=== PATIENT | female | born 1940 | race Caucasian/White ===

== ENCOUNTER 2024-05-02 14:41 | Emergency (ER) | payer MEDICARE, OTHER, SELFPAY ==
[2024-05-02 14:42] VITALS: BP 145/65
--- NOTE | 2024-05-02 15:43 | ED.GENMED ---
History of Present Illness
General
Chief Complaint: DVT/Possible Blood Clot
Source: patient and spouse
Exam Limitations: none
Time Seen by Provider: 05/02/24 15:35
Nursing documentation reviewed up to this point in time: agreed with
History of Present Illness
History of Present Illness:
83-year-old female with a past medical history as documented who presents to the emergency room for evaluation of right leg pain and swelling. Patient reports onset of symptoms yesterday and have been constant since that time. She reports pain and
swelling of the right lower leg and redness to the anterior lower leg that has been worsening x 24 hours. She denies any trauma to the area. She denies any other symptoms including fevers or chills, chest pain or shortness of breath. She was she
was concerned potentially for a DVT although she denies any past history of DVT/PE.
Past History
Past History
ED Past Medical History: Arrthythmia (Paroxysmal a fib/ atrial tachycardia), Asthma, GERD, Hypercholesterolemia, Hypothyroidism and Other (Elevated troponin in February 2010, NSTEMI, Ulcers, aortic stenosis, osteoporosis); Negative CAD
ED Past Surgical History: Orthopedic
Social History
Tobacco: Non-smoker
Alcohol: Daily
Drug: None
Personal:
Living: with family
Employment: Retired
Family History
Family History: Negative Diabetes or Hypertension
Review of Systems
Review of Systems
All Other Systems: ROS reviewed and negative except as documented in HPI and ROS
Constitutional: Denies fever or chills
Respiratory: Denies trouble breathing
Cardiac: Denies chest pain
Musculoskeletal: Reports edema
Skin: Reports other (Redness and pain right lower leg)
Phy Exam
Physical Exam
Physical Exam:
General: Awake, alert, oriented x3; no acute distress
Head: Normocephalic, atraumatic
Eyes: Conjunctiva normal
Throat: Airway intact, handling secretions
Neck: Trachea midline
Lungs: Normal respiratory rate, normal pulse ox on room air
Heart: Regular rate, good strong pulses in all extremities�specifically she has a strong palpable right DP pulse
Neuro: Cranial nerves grossly intact, speech fluid
Skin: Patient has chronic venous stasis changes in both lower legs; on the right lateral lower leg she has an area of increased erythema and warmth and tenderness to the touch, induration but no crepitus or fluctuance
Extremities: Trace edema in the lower legs bilaterally but it appears to be symmetric
Scores
Heart Failure Risk
Heart Failure Risk Score: Not Applicable
Heart Score for Chest Pain Patients
STEMI patient?: Not applicable
Withdrawal Assessment of Alcohol
Withdrawal Assessment Completed?: Not applicable
Course
Orders/Labs/Results
Orders:
Orders
05/02/24 14:46
US Periph Venous LOWER Ext RT Urgent
Comment:
Reason For Exam: pain, swelling
05/02/24 17:05
Cephalexin Monohydrate [Keflex] 500 mg PO NOW STA
Vital Signs
Initial and Last Documented VS:
Initial Vital Signs
Temp Pulse Resp BP Pulse Ox
36.4 C 80 18 145/65 99
05/02/24 14:42 05/02/24 14:42 05/02/24 14:42 05/02/24 14:42 05/02/24 14:42
Last Documented Vital Signs
Temp Pulse Resp BP Pulse Ox
36.4 C 80 18 145/65 99
05/02/24 14:42 05/02/24 14:42 05/02/24 14:42 05/02/24 14:42 05/02/24 14:42
MDM/Problems Addressed
Differential Diagnosis Includes:
Cellulitis, DVT
MDM/Problems Addressed:
83-year-old female who presents with atraumatic pain and swelling on the right lower leg for the past 24 hours. Vitals normal. Exam as above. Clinically I suspect that this is a mild acute cellulitis but will send for right lower extremity
ultrasound to rule out DVT. Reassess after the above.
Right lower extremity ultrasound shows no signs of acute DVT. Suspect that she likely has mild acute cellulitis. She does have some chronic venous stasis changes and dry skin in the lower extremities which likely represents portal for bacterial
injury. Redness and swelling is relatively mild and localized and she has no signs of sepsis; in my judgment she is a reasonable candidate for trial of outpatient antibiotics. She feels comfortable this plan. Will have her follow-up with her PCP
for reassessment and return with worsening symptoms. All questions answered.
*Radiology
Radiology exam reviewed: radiology read reviewed
*Pulse Oximetry
Patient hypoxic: no
*Critical Care Note
Total Time (30-74mins, 75-104mins- exclusive of procedures): Not Applicable
Data Reviewed
Source: patient, records and spouse
ED Attending Note
-
Portions of this chart may have been created with voice recognition software.� Occasional wrong word or��sound alike� substitutions may have occurred due to the inherent limitations of voice recognition software.
Discharge Plan
Departure
Patient Disposition: Home (Routine Discharge)
Date of Disposition: 05/02/24
Time of Disposition: 17:05
Patient with high blood pressure during this ER visit?: No
Discharge Problem:
Cellulitis
Instructions: Cellulitis (Skin Infection), Adult (DC)
Prescriptions:
New
cephalexin 500 mg capsule
500 mg PO QID 7 Days Qty: 28 0RF
No Action
omeprazole 20 MG capsule,delayed release(DR/EC)
20 mg PO DAILY
cholecalciferol (vitamin D3) 2,000 UNIT tablet
2,000 units PO DAILY
metoprolol succinate 50 MG tablet extended release 24 hr
50 mg PO BID Qty: 60 0RF
Xarelto 15 mg Tablet
15 mg PO DAILY
potassium chloride 20 mEq Tablet Extended Release
60 meq PO BID
Balance Of Nature
2 cap PO TID
Rx Instructions:
Fruits & Vegetables
allopurinol 100 mg tablet
100 mg PO DAILY
acetaminophen [Tylenol Ex Str Arthritis Pain] 500 mg Tablet
500 mg PO Q6H PRN (Reason: discomfort)
oxycodone-acetaminophen 5-325 mg Tablet
1 tab PO Q6H PRN (Reason: discomfort)
levothyroxine [Synthroid] 125 mcg Tablet
125 mcg PO DAILY
bumetanide 1 mg Tablet
2.5 mg PO DAILY
vitamin B complex Tablet
1 tab PO DAILY
Jardiance 25 mg Tablet
25 mg PO DAILY
vitamin E
180 mg PO DAILY
Referrals:
UNKNOWN - PT DOES,NOT KNOW [Unknown Provider] -
Activity Restrictions/Additional Instructions:
Thank you for visiting the Emergency Department at [facility].
1. Please schedule a follow up appointment as directed. Call first thing tomorrow morning to make an appointment.
2. If indicated, please take your medications as instructed and indicated on discharge paperwork.
3. If any of your symptoms do not improve, or persist, or become more severe within 6-12 hours, please return to the emergency department for further care.
4. Please return to the emergency department if you develop a headache, neck pain/stiffness, fever greater than 100.4F, chest pain, shortness of breath, persistent nausea, vomiting, slurred speech, difficulty walking, numbness/tingling, weakness,
signs of infection or any other symptoms that are worrisome to you.
Please call [phone] if you have any questions.
Interventions
Interventions:
*Risk Screen - Suicide Last Done: 05/02/24 14:42
*General Assessment Last Done: 05/02/24 14:42
*Neglect/Abuse Screening Last Done: 05/02/24 14:42
*ED COVID-19 Vaccine History Last Done: 05/02/24 14:42
ED- Cardiac Assessment Last Done: 05/02/24 17:01
ED- Pulmonary Assessment Last Done: 05/02/24 17:01
ED-Peripheral Vascular Assessment Last Done: 05/02/24 17:01
Discharge Date and Time
Print Language: AMERICAN
[2024-05-02] MEDS: KEFLEX 500 MG PO (17:10)
== END 2024-05-02 17:22 | disposition home or self-care (01) ==
LOC: EMR 14:41
PROVIDERS: EMERGENCY PHYSICIAN Emergency Medicine; FAMILY PHYSICIAN Family Medicine
DX: L03.115 Cellulitis of right lower limb (principal); M79.661 Pain in right lower leg; I48.0 Paroxysmal atrial fibrillation; K21.9 Gastro-esophageal reflux disease without esophagitis; J45.909 Unspecified asthma, uncomplicated; E78.00 Pure hypercholesterolemia, unspecified; E03.9 Hypothyroidism, unspecified; I35.0 Nonrheumatic aortic (valve) stenosis; I25.10 Atherosclerotic heart disease of native coronary artery without angina pectoris; R01.1 Cardiac murmur, unspecified; K52.9 Noninfective gastroenteritis and colitis, unspecified; M19.90 Unspecified osteoarthritis, unspecified site; E11.9 Type 2 diabetes mellitus without complications; Z96.653 Presence of artificial knee joint, bilateral; I25.2 Old myocardial infarction; Z79.01 Long term (current) use of anticoagulants; Z88.1 Allergy status to other antibiotic agents; Z88.8 Allergy status to other drugs, medicaments and biological substances
CPT/HCPCS: 99284; 93971

== ENCOUNTER 2024-08-04 09:26 | Emergency (ER) | payer MEDICARE, OTHER, SELFPAY ==
[2024-08-04 09:41] VITALS: BP 137/82
[2024-08-04 09:56] VITALS: BMI 37.0
[2024-08-04 10:01] VITALS: BP 123/67
--- NOTE | 2024-08-04 10:34 | ED.GENMED ---
History of Present Illness
<BENJI Wills - Last Filed: 08/06/24 08:49>
General
Chief Complaint: Skin Problem
Source: patient
Exam Limitations: none
Time Seen by Provider: 08/04/24 09:51
Nursing documentation reviewed up to this point in time: agreed with
History of Present Illness
History of Present Illness:
84-year-old female with past medical history of kidney issues valve replacement on Pradaxa aortic stenosis A-fib presents to the ER for evaluation.
Pt started with itching to her back and breasts 4 days ago and then noticed some discomfort and bruising in her left anterior rib area. She also complains of' and internal soreness to her left rib are.' She denies any injury. She denies any
nausea vomiting fever chills.
She started Ozempic 9 weeks ago
Past History
<BENJI Wills - Last Filed: 08/06/24 08:49>
Past History
ED Past Medical History: Arrthythmia (Paroxysmal a fib/ atrial tachycardia), Asthma, GERD, Hypercholesterolemia, Hypothyroidism and Other (Elevated troponin in February 2010, NSTEMI, Ulcers, aortic stenosis, osteoporosis); Negative CAD
ED Past Surgical History: Orthopedic
Social History
Tobacco: Non-smoker
Alcohol: Daily
Drug: None
Personal:
Living: with family
Employment: Retired
Family History
Family History: Negative Diabetes or Hypertension
Review of Systems
<BENJI Wills - Last Filed: 08/06/24 08:49>
Review of Systems
Allergies reviewed?: Yes
All Other Systems: ROS reviewed and negative except as documented in HPI and ROS
Constitutional: Reports no symptoms; Denies fever, fatigue or chills
Respiratory: Reports other (soreness around her left rib area); Denies cough or trouble breathing
Cardiac: Reports no symptoms
ABD/GI: Reports no symptoms; Denies abdominal pain, nausea or vomiting
: Reports no symptoms
Musculoskeletal: Reports no symptoms
Skin: Reports itching
Neurological: Reports no symptoms
Psychiatric: Reports no symptoms
Phy Exam
<BENJI Wills - Last Filed: 08/06/24 08:49>
General Physical Exam
General Presentation: no apparent distress
General age: appears stated age
General Skin: warm and dry
General Habitus: elderly
General Mental: alert
General Hydration: appears well hydrated
Cardiovascular Exam
Cardiovascular Exam: regular rate/rhythm
Pulmonary Exam
Pulmonary Exam: lungs clear and no respiratory distress
Neurological Exam
Neurological Exam: alert and oriented x3
Musculoskeletal Exam
Musculoskeletal Exam: full ROM
Skin Exam
Skin Exam: normal color, warm/dry and other (Scattered ecchymosis to left lower anterior rib area with small red rash to this area; in addition + redness to left back no hives )
Psychiatric Exam
Psychiatric Exam: normal mood/affect
Course
<BENJI Wills - Last Filed: 08/06/24 08:49>
Orders/Labs/Results
Orders:
Orders
08/04/24 10:39
IV Insert/Care/Rem.- Treatment PRN
08/04/24 11:30
Basic Metabolic Panel Urgent
PTT Urgent
Prothrombin Time Urgent
08/04/24 11:31
Complete Blood Count/With Diff Urgent
08/04/24 13:25
Comprehensive Metabolic Panel Urgent
Lipase Urgent
Valacyclovir HCl [Valtrex] 1,000 mg PO NOW STA
Abnormal Lab Results
08/04/24 08/04/24 08/04/24
11:30 11:31 13:25
RBC 3.84 L 10^6/uL
(4.20-5.40)
Hct 36.3 L %
(37.0-47.0)
MCH 31.8 H pg
(27.0-31.0)
MPV 10.6 H fL
(7.4-10.4)
Absolute Monos (auto) 1.2 H 10^3/uL
(0.1-0.6)
Lymphocytes % 14.8 L %
(20.5-51.1)
Monocytes % 14.0 H %
(1.7-9.3)
PT 23.4 H Sec
(11.4-14.6)
APTT 77.0 H Sec
(23.4-35.0)
Carbon Dioxide 31 H mmol/L
(22-30)
BUN 46 H mg/dl 45 H mg/dl
(7-17) (7-17)
Creatinine 2.0 H mg/dL 2.1 H mg/dL
(0.6-1.0) (0.6-1.0)
Glucose 108 H mg/dl
(70-99)
Total Protein 6.1 L g/dl
(6.3-8.2)
08/04/24 11:31
08/04/24 13:25
Vital Signs
Initial and Last Documented VS:
Initial Vital Signs
Temp Pulse Resp BP Pulse Ox
97.8 F 72 16 137/82 98
08/04/24 09:41 08/04/24 09:41 08/04/24 09:41 08/04/24 09:41 08/04/24 09:41
Last Documented Vital Signs
Temp Pulse Resp BP Pulse Ox
97.8 F 74 16 127/71 96
08/04/24 09:41 08/04/24 14:43 08/04/24 14:43 08/04/24 14:43 08/04/24 14:43
Atmospheric Scientist consulted with Physician
Atmospheric Scientist consulted with physician?: Yes
Name of Physician Consulted: [email or web address]
<Robert Vlilasenor MD - Last Filed: 08/04/24 11:47>
Orders/Labs/Results
Orders:
Orders
08/04/24 10:39
IV Insert/Care/Rem.- Treatment PRN
08/04/24 11:30
Basic Metabolic Panel Urgent
PTT Urgent
Prothrombin Time Urgent
08/04/24 11:31
Complete Blood Count/With Diff Urgent
08/04/24 13:25
Comprehensive Metabolic Panel Urgent
Lipase Urgent
Valacyclovir HCl [Valtrex] 1,000 mg PO NOW STA
Abnormal Lab Results
08/04/24 08/04/24 08/04/24
11:30 11:31 13:25
RBC 3.84 L 10^6/uL
(4.20-5.40)
Hct 36.3 L %
(37.0-47.0)
MCH 31.8 H pg
(27.0-31.0)
MPV 10.6 H fL
(7.4-10.4)
Absolute Monos (auto) 1.2 H 10^3/uL
(0.1-0.6)
Lymphocytes % 14.8 L %
(20.5-51.1)
Monocytes % 14.0 H %
(1.7-9.3)
PT 23.4 H Sec
(11.4-14.6)
APTT 77.0 H Sec
(23.4-35.0)
Carbon Dioxide 31 H mmol/L
(22-30)
BUN 46 H mg/dl 45 H mg/dl
(7-17) (7-17)
Creatinine 2.0 H mg/dL 2.1 H mg/dL
(0.6-1.0) (0.6-1.0)
Glucose 108 H mg/dl
(70-99)
Total Protein 6.1 L g/dl
(6.3-8.2)
08/04/24 11:31
08/04/24 13:25
Vital Signs
Initial and Last Documented VS:
Initial Vital Signs
Temp Pulse Resp BP Pulse Ox
97.8 F 72 16 137/82 98
08/04/24 09:41 08/04/24 09:41 08/04/24 09:41 08/04/24 09:41 08/04/24 09:41
Last Documented Vital Signs
Temp Pulse Resp BP Pulse Ox
97.8 F 74 16 127/71 96
08/04/24 09:41 08/04/24 14:43 08/04/24 14:43 08/04/24 14:43 08/04/24 14:43
<BENJI Wills - Last Filed: 08/06/24 08:49>
MDM/Problems Addressed
Differential Diagnosis Includes:
not limited to : Allergic reaction, shingles
MDM/Problems Addressed:
As documented patient is an 84-year-old female who presented with several days of generalized itching and in addition noted some pain in the left anterior rib area. She described this pain as internal pain on exam she is in no acute distress she
denies any recent fevers or injury. Her lungs are clear there is no hives to her back. On exam there is small amount of scattered ecchymosis to left anterior rib area and small amount of redness to the left rib area with small redness same
inconsistency to left back area. Redness consistent with possible shingles it is unclear source of ecchymosis patient has been scratching this area but denies trauma. She is on Pradaxa her PT PTT is mildly elevated. Her hemoglobin and platelets
are normal her white count is normal. She does have chronic renal disease and her creatinine is 2.0 which is baseline .
Patient's labs are clotted will check potassium as she does have high kidney function will check LFTs however plan as discussed ED physician is to discharge with antiviral for shingles. Regarding the itching it is possible that his Ozempic will
have patient speak with her family doctor about this before taking medication again.
Chronic conditions affecting care:
On Pradaxa on Ozempic(Ozempic is new for the past several weeks )
<BENJI Wills - Last Filed: 08/06/24 08:49>
*Pulse Oximetry
Patient hypoxic: no
*Critical Care Note
Total Time (30-74mins, 75-104mins- exclusive of procedures): Not Applicable
ED Attending Note
<BENJI Wills - Last Filed: 08/06/24 08:49>
-
Portions of this chart may have been created with voice recognition software.� Occasional wrong word or��sound alike� substitutions may have occurred due to the inherent limitations of voice recognition software.
<Robert Villasenor MD - Last Filed: 08/04/24 11:47>
ED Attending Note
Patient seen and examined by attending physician: Yes
I performed the substantive portion of visit, reviewed & personally made and approve the management plan that is documented in note by myself or AGA.: Yes
ED Attending Note:
84-year-old female complaining of itchy rash bilaterally but mostly the left side. She mostly is scratching the left side. She started Ozempic 2 months ago. No shortness of breath fever chest pain or other complaints.
On exam patient is nontoxic in no distress. Warm and dry. Perfusing well. Ambulating well. Areas of small discrete superficial ecchymosis from the left sternum to the flank. There is a few areas of small early vesicle like rash. Also a tiny
area along the dermatome in the back.
Possibly shingles where the ecchymosis is from her scratching. If course does not explain the general mild itchy rash. Very nontoxic. No petechia or purpura. Will do a labs checked PT PTT. Check platelets. Will treat for shingles if all is
stable
Discharge Plan
Departure
Patient Disposition: Home (Routine Discharge)
Date of Disposition: 08/04/24
Time of Disposition: 15:11
Patient with high blood pressure during this ER visit?: No
Condition: Fair
Covid-19: Not Applicable
Discharge Problem:
Herpes zoster, itching
Instructions: Shingles, Itchy skin
Prescriptions:
New
valacyclovir 1 gram tablet
1,000 mg PO TID Qty: 21 0RF
No Action
omeprazole 20 MG capsule,delayed release(DR/EC)
20 mg PO DAILY
cholecalciferol (vitamin D3) 2,000 UNIT tablet
2,000 units PO DAILY
metoprolol succinate 50 MG tablet extended release 24 hr
50 mg PO BID Qty: 60 0RF
Xarelto 15 mg Tablet
15 mg PO DAILY
potassium chloride 20 mEq Tablet Extended Release
60 meq PO BID
Balance Of Nature
2 cap PO TID
Rx Instructions:
Fruits & Vegetables
allopurinol 100 mg tablet
100 mg PO DAILY
acetaminophen [Tylenol Ex Str Arthritis Pain] 500 mg Tablet
500 mg PO Q6H PRN (Reason: discomfort)
oxycodone-acetaminophen 5-325 mg Tablet
1 tab PO Q6H PRN (Reason: discomfort)
levothyroxine [Synthroid] 125 mcg Tablet
125 mcg PO DAILY
bumetanide 1 mg Tablet
2.5 mg PO DAILY
vitamin B complex Tablet
1 tab PO DAILY
Jardiance 25 mg Tablet
25 mg PO DAILY
vitamin E
180 mg PO DAILY
cephalexin 500 mg capsule
500 mg PO QID 7 Days Qty: 28 0RF
Referrals:
Felix Wilcox MD [Family Provider] -
Activity Restrictions/Additional Instructions:
As discussed a prescription for a viral medication was sent to your pharmacy for shingles take as directed starting tomorrow you were given the first dose here in the ER. In addition please speak with your family doctor prior to taking your next
Ozempic dose because of your itching. Return if any worsening of symptoms if worsening rash difficulty breathing fever chills or if you have any concerns.
Interventions
Interventions:
*Risk Screen - Suicide Last Done: 08/04/24 09:41
*General Assessment Last Done: 08/04/24 09:58
*Neglect/Abuse Screening Last Done: 08/04/24 09:41
ED- Fall Risk Assessment Last Done: 08/04/24 09:58
*ED COVID-19 Vaccine History Last Done: 08/04/24 09:58
*Nursing Disposition Last Done: 08/04/24 15:35
ED-Skin Assessment Last Done: 08/04/24 09:59
Discharge Date and Time
Discharge Date/Time: 08/04/24 15:35
Print Language: COOK ISLANDER
--- NOTE | 2024-08-04 10:44 | EDRN ---
Aure Mac DOCTOR OF NAPRAPATHY in to see pt at 10:35.
[2024-08-04 10:50] VITALS: BP 113/59
--- NOTE | 2024-08-04 11:33 | EDRN ---
This RN attempted IV access x2 w/out success w/ Valeria DELATORREN getting an IV and bloods ordered from L hand IV access at this time.
[2024-08-04 11:39] LABS: % Basophils 0.6 % (0-2); % Eosinophils 4.2 % (0-6); % Immature Granulocytes 0.4 % (0-0.5); % Lymphocytes 14.8 % (20.5-51.1); Absolute Basophils 0.1 10^3/uL (0-0.2); Absolute Eosinophils 0.4 10^3/uL (0-0.7); Absolute Lymphocytes 1.2 10^3/uL (1.2-3.4); Absolute Monocytes 1.2 10^3/uL (0.1-0.6); Absolute Neutrophils 5.5 10^3/uL (1.4-6.5); Hematocrit 36.3 % (37.0-47.0); Hemoglobin 12.2 g/dL (12.0-16.0); Mean Corp Hgb Conc. 33.6 g/dL (33.0-37.0); Mean Corpuscular Hgb 31.8 pg (27.0-31.0); Mean Corpuscular Volume 94.5 fL (81.0-99.0); Mean Platelet Volume 10.6 fL (7.4-10.4); Nucleated Red Blood Cells % 0 %; Platelet Count 183 10^3/uL (130-400); Red Blood Cell Count 3.84 10^6/uL (4.20-5.40); Red Cell Dist. Width 13.3 % (11.5-14.5); White Blood Cell Count 8.3 10^3/uL (4.8-10.8)
[2024-08-04 11:58] LABS: PT 23.4 Sec (11.4-14.6)
--- NOTE | 2024-08-04 12:03 | EDRN ---
Pt up to BR at this time. SST blood tube hemolyzed and will need to be redrawn at this time.
[2024-08-04 12:14] VITALS: BP 113/56
--- NOTE | 2024-08-04 12:16 | EDRN ---
SST blood tube redrawn and sent at this time.
[2024-08-04 12:24] LABS: Blood Urea Nitrogen 46 mg/dl (7-17); Glucose 108 mg/dl (70-99)
[2024-08-04 12:25] LABS: Carbon Dioxide 27 mmol/L (22-30); Chloride 99 mmol/L (98-107); Estimated Creatinine Clearance 21 ml/min; Sodium 137 mmol/L (135-145); eGFR 24.33
--- NOTE | 2024-08-04 13:12 | EDRN ---
Aure Mac BOX TOE STITCHER in room w/ pt. SST tube was again hemolyzed though BMP resulted w/out K+ or liver profile and Aure Mac BOX TOE STITCHER states these labs are needed so pt will need a third draw for SST tube. ED PCT Cristobal attempting SST CMP blood draw.
--- NOTE | 2024-08-04 13:49 | EDRN ---
Pt has valcyclovir ordered by has to await COMPrehensive results as kidney levels high.
[2024-08-04] MEDS: VALTREX 1000 MG PO (14:31)
--- NOTE | 2024-08-04 14:39 | EDRN ---
uAre Mac VIROLOGY TEACHER said no need to hold the Valcyclovir at this time.
[2024-08-04 14:43] VITALS: BP 127/71
[2024-08-04 14:50] LABS: ALT (SGPT) 16 U/L (0-35); AST (SGOT) 30 U/L (14-36); Albumin 3.9 g/dl (3.5-5.0); Alkaline Phosphatase 120 U/L (38-126); Blood Urea Nitrogen 45 mg/dl (7-17); Calcium 9.7 mg/dl (8.4-10.2); Carbon Dioxide 31 mmol/L (22-30); Chloride 100 mmol/L (98-107); Estimated Creatinine Clearance 20 ml/min; Glucose 99 mg/dl (70-99); Lipase 262 U/L (23-300); Potassium 3.9 mmol/L (3.5-5.1); Sodium 140 mmol/L (135-145); Total Bilirubin 0.6 mg/dl (0.2-1.3); Total Protein 6.1 g/dl (6.3-8.2); eGFR 22.95
--- NOTE | 2024-08-04 15:01 | EDRN ---
This RN TT'd Aure Mac TECHNICAL INSTRUCTOR COURSE DEVELOPER that blood drawn at 13:25 was just resulted.
== END 2024-08-04 15:35 | disposition home or self-care (01) ==
LOC: EMR 09:26
PROVIDERS: Nurse Practitioner; EMERGENCY PHYSICIAN Emergency Medicine; FAMILY PHYSICIAN Family Medicine
DX: B02.9 Zoster without complications (principal); L29.9 Pruritus, unspecified; I35.0 Nonrheumatic aortic (valve) stenosis; I48.0 Paroxysmal atrial fibrillation
CPT/HCPCS: 99283; 80048; 80053; 83690; 85025; 85610; 85730

== ENCOUNTER 2025-04-13 08:36 | Inpatient (IN) | payer MEDICARE, OTHER, SELFPAY ==
[2025-04-11 20:26] VITALS: BP 159/84
[2025-04-11 20:27] VITALS: BP 159/84; BMI 36.0
[2025-04-11 20:54] LABS: COVID-19 Antigen Positive (Negative)
[2025-04-11 20:57] LABS: Hematocrit 36.1 % (37.0-47.0); Hemoglobin 12.4 g/dL (12.0-16.0); Mean Corp Hgb Conc. 34.3 g/dL (33.0-37.0); Mean Corpuscular Hgb 33.2 pg (27.0-31.0); Mean Corpuscular Volume 96.5 fL (81.0-99.0); Platelet Count 119 10^3/uL (130-400); Red Blood Cell Count 3.74 10^6/uL (4.20-5.40); Red Cell Dist. Width 13.2 % (11.5-14.5); Urine Albumin 2+ (Neg - Trace); Urine Bilirubin Negative (Negative); Urine Character Clear (Clear); Urine Color Yellow; Urine Glucose Negative (Negative); Urine Ketone 2+ (Negative); Urine Leukocyte 2+ (Negative); Urine Nitrite Negative (Negative); Urine Occult Blood Negative (Negative); Urine Urobilinogen Negative (Neg - 1+); White Blood Cell Count 5.3 10^3/uL (4.8-10.8)
[2025-04-11 21:00] VITALS: BP 142/81
[2025-04-11 21:04] LABS: Urine Squamous Cell >30 /LPF (Few)
[2025-04-11 21:05] LABS: Urine Red Blood Cell 0-2 /HPF (0-2)
[2025-04-11 21:06] LABS: Urine Bacteria Few (Negative); Urine White Cell 30-40 /HPF (0-5)
[2025-04-11 21:20] LABS: Band Neutrophils 0 % (0-3); Lymphocytes 13 % (20-51); Monocytes 29 % (2-9); Segmented Neutrophils 58 % (42-75)
[2025-04-11 21:21] LABS: Normal RBC Morphology Yes; Platelets Checked Yes; Total Cells Counted 100
--- NOTE | 2025-04-11 21:35 | ED.GENMED ---
History of Present Illness
General
Chief Complaint: Cough
Source: patient, spouse and family
Exam Limitations: none
Time Seen by Provider: 04/11/25 20:52
Nursing documentation reviewed up to this point in time: agreed with
History of Present Illness
History of Present Illness:
84-year-old female with a past medical history as noted presents to the emergency department with her family for evaluation of flulike illness. Patient reports symptoms started today and have been constant all day. She reports she woke up with
severe generalized weakness. She says she has had congestion/postnasal drip. She reports she has had subjective chills. She has had headache. She describes some mild pressure in her chest. Came to the emergency room for evaluation. She denies
any shortness of breath. She denies any GI symptoms�no nausea, vomiting, diarrhea. Her only other pertinent complaint is that she has been having some increased bladder pressure and frequency of urination over the past few days�she was already
seen by her primary doctor and prescribed Macrobid and took her first dose today. No flank pain.
Past History
Past History
ED Past Medical History: Arrthythmia (Paroxysmal a fib/ atrial tachycardia), Asthma, GERD, Hypercholesterolemia, Hypothyroidism and Other (Elevated troponin in February 2010, NSTEMI, Ulcers, aortic stenosis, osteoporosis); Negative CAD
ED Past Surgical History: Orthopedic
Social History
Tobacco: Non-smoker
Alcohol: Daily
Drug: None
Personal:
Living: with family
Employment: Retired
Family History
Family History: Negative Diabetes or Hypertension
Review of Systems
Review of Systems
All Other Systems: ROS reviewed and negative except as documented in HPI and ROS
Constitutional: Reports fever (Subjective), fatigue and chills
EENT: Reports runny nose and other (Congestion and postnasal drip); Denies sore throat
Respiratory: Reports cough; Denies trouble breathing
Cardiac: Reports chest pain (Chest pressure); Denies palpitations
ABD/GI: Reports abdominal pain (Bladder pressure); Denies nausea, vomiting or diarrhea
: Reports frequency; Denies dysuria or flank pain
Musculoskeletal: Denies neck pain or back pain
Neurological: Reports headache and weakness (Generally weak)
Phy Exam
Physical Exam
Physical Exam:
General: Awake, alert, oriented x 3, not in acute distress
Head: Normocephalic, atraumatic
Eyes: Conjunctiva normal, EOMI, pupils equal round and reactive to light bilaterally
Ears: TMs clear bilaterally
Throat: Airway intact, handling secretions, no tonsillar erythema or exudate
Neck: Trachea midline, supple without meningismus, no adenopathy noted
Lungs: Clear to auscultation bilaterally, no wheezing, rales, rhonchi, no hypoxia or tachypnea
Heart: Regular rate and rhythm, no murmurs, gallops, or rubs
Abd: Soft, non distended, nontender to deep palpation with no masses appreciated
Neuro: Cranial nerves grossly intact, speech fluid, no gross motor or sensory deficits noted
Extremities: No edema in extremities, equal pulses in all extremities
Scores
Heart Failure Risk
Heart Failure Risk Score: Not Applicable
Heart Score for Chest Pain Patients
STEMI patient?: Not applicable
Withdrawal Assessment of Alcohol
Withdrawal Assessment Completed?: Not applicable
Sepsis
Sepsis Screening
Sepsis Assessment: Sepsis Ruled Out
Sepsis Screen
Sepsis Screen: Sepsis Ruled Out
Date: 04/12/25
Time: 02:07
Course
Orders/Labs/Results
Orders:
Orders
04/11/25 20:38
EKG [Electrocardiogram (*1)] Urgent
Reason for Study: Chest Pain
COVID-19 Antigen Urgent
Source: Nasal Swab
Complete Blood Count/With Diff Urgent
Manual Differential Urgent
Urinalysis Reflex To Culture Urgent
Date Specimen was Collected: 04/11/25
Time Specimen was Collected: 20:31
Urine Microscopic Reflex Cult Urgent
Influenza A+B Rapid Molecular Urgent
NIK Source: Nasal Swab
Specimen Description:
Date Specimen was Collected: 04/11/25
Time Specimen was Collected: 20:31
Urine Culture Urgent
NIK Source: U
Specimen Description:
Date Specimen was Collected: 04/11/25
Time Specimen was Collected: 20:31
04/11/25 20:39
EKG- Treatment ONCE
04/11/25 20:56
CR Chest Portable - 1 View Urgent
Comment:
Reason For Exam: cough, fever
Reason Study Needs to be Portable: Unable to Transport
04/11/25 21:18
Comprehensive Metabolic Panel Urgent
Troponin I Urgent
04/11/25 21:34
0.9% Sodium Chloride 500 ml [Nss] 500 ml IV BOLUS
Acetaminophen [Tylenol] 1,000 mg PO NOW STA
04/11/25 23:30
Troponin I Urgent
04/12/25 00:37
Aspirin Chewable [Low Strength Aspirin] 324 mg PO NOW STA
04/12/25 01:48
Admit/Transfer Patient As Directed
Co-Sign Provider:
Level of Care: Observation services
Assign to:: Telemetry
Physician / Group: Corbin
Diagnosis: COVID-19, Chest Pain
Reason for Telemetry: Chest Pain syndromes
Date to Stop Telemetry: 04/14/25
Time to Stop Telemetry: 11:00
PRN Pain Medication Management As Directed
May give lesser potent ordered pain med per pt: Yes
preference::
Protocol:: Medication orders for pain may be administered in a
manner that supports deferring to patient preference
when the pt is:
- Requesting an ordered lesser potent pain medication.
Least to most potent pain medications are defined
as: acetaminophen < NSAID < tramadol < opioids
(morphine, oxycodone, hydromorphone).
- Requesting a lesser dose of the same medication IF
ORDERED.
- Requesting a less intrusive route of administration
if both routes are prescribed by the provider (PO <
IV).
04/12/25 01:49
Code Status As Directed
Resuscitation Status: Full Code
04/12/25 02:00
Flush (0.9% Sodium Chloride) [Flush (Nss)] See Dose Instructions IV PER PROTOCOL
04/14/25 11:00
DC Protocol for Telemetry ONCE
Abnormal Lab Results
04/11/25 04/11/25 04/11/25
20:38 21:18 23:30
RBC 3.74 L 10^6/uL
(4.20-5.40)
Hct 36.1 L %
(37.0-47.0)
MCH 33.2 H pg
(27.0-31.0)
Plt Count 119 L 10^3/uL
(130-400)
MPV 11.0 H fL
(7.4-10.4)
Lymphocytes (Manual) 13 L %
(20-51)
Monocytes (Manual) 29 H %
(2-9)
BUN 30 H mg/dl
(7-17)
Creatinine 2.1 H mg/dL
(0.6-1.0)
Troponin I 0.039 H* D ng/ml
Urine Ketones 2+ A
(Negative)
Leukocyte Esterase Rfl 2+ A
(Negative)
Urine WBC (Reflex) 30-40 A /HPF
(0-5)
Urine Bacteria (Reflex) Few A
(Negative)
Urine Albumin (Reflex) 2+ A
(Neg - Trace)
SARS-CoV-2 Antigen Positive A
(Negative)
04/11/25 20:38
04/11/25 21:18
Vital Signs
Initial and Last Documented VS:
Initial Vital Signs
Pulse Ox
96
04/11/25 20:24
Last Documented Vital Signs
Temp Pulse Resp BP Pulse Ox
37.3 C 83 23 129/68 97
04/11/25 20:27 04/12/25 01:45 04/12/25 01:45 04/12/25 01:00 04/12/25 01:45
MDM/Problems Addressed
Differential Diagnosis Includes:
Viral illness (COVID/flu), pneumonia, UTI
MDM/Problems Addressed:
84-year-old female presents for evaluation of flulike illness�symptoms started today in the setting of recent UTI symptoms over the past few days for which she just started Macrobid. Vitals and exam as above. Plan to place an IV check labs
including a CBC and CMP. Will check urinalysis. Check COVID and flu swabs. Will check EKG and troponins in an abundance of caution given report of chest pressure although low suspicion that these are anginal symptoms. Will monitor closely
reassess after the above.
Patient's COVID swab is positive which certainly accounts for her symptoms. Apparently she had an exposure a few days ago. We spoke about potentially treating with Paxlovid but after discussion of risk versus benefits patient declined. Her
urinalysis did come back likely contaminated but with bacteria and pyuria that she is already on Macrobid which I encouraged her to continue to take. Her CBC shows mild thrombocytopenia likely in the setting of viral illness. Chemistry still
pending. Treating symptomatically with Tylenol and fluids. We are awaiting results of chest x-ray. Vital signs have been stable.
Chemistry shows chronic kidney disease stable. Initial troponin is negative but detectable at 0.28. Continues to complain of chest pressure will trend for completeness. Chest x-ray shows no acute pneumonia on my review.
Repeat troponin uptrending to 0.039. Possibly some mild pericarditis/myocarditis related to COVID infection, lower suspicion that this is anginal chest pressure but will admit for trending of troponin. Discussed with hospitalist.
*Pulse Oximetry
SaO2: 96
Oxygen Mode of Delivery: Room air
Patient hypoxic: no (96%)
*EKG
Interpreted by ED Provider?: Yes
Heart Rate: 100
Rate: normal
Rhythm: a-fib and PVC's
[place]: normal axis
Interval: normal interval
QRS Pattern: normal QRS
Ischemia: no ischemia
*Critical Care Note
Total Time (30-74mins, 75-104mins- exclusive of procedures): Not Applicable
Data Reviewed
Review of Other/Old Records Reveals: Labs and Records
Source: patient, records and family
ED Attending Note
-
Portions of this chart may have been created with voice recognition software.� Occasional wrong word or��sound alike� substitutions may have occurred due to the inherent limitations of voice recognition software.
Discharge Plan
Departure
Patient Disposition: Admit
Date of Disposition: 04/12/25
Time of Disposition: 00:37
Admit to doctor: Corbin
Presentation/result/management discussed w/ accepting MD/DO: Hospitalist
Discharge Problem:
Chest pain, COVID-19
Prescriptions:
No Action
omeprazole 20 MG capsule,delayed release(DR/EC)
20 mg PO DAILY
cholecalciferol (vitamin D3) 2,000 UNIT tablet
2,000 units PO DAILY
metoprolol succinate 50 MG tablet extended release 24 hr
50 mg PO BID Qty: 60 0RF
Balance Of Nature
2 cap PO TID
Rx Instructions:
Fruits & Vegetables
allopurinol 100 mg tablet
100 mg PO DAILY
acetaminophen [Tylenol Ex Str Arthritis Pain] 500 mg Tablet
500 mg PO Q6H PRN (Reason: discomfort)
levothyroxine [Synthroid] 125 mcg Tablet
125 mcg PO DAILY
bumetanide 1 mg Tablet
1 mg PO BID
vitamin B complex Tablet
1 tab PO DAILY
vitamin E
180 mg PO DAILY
spironolactone 25 mg Tablet
25 mg PO Q48H
dabigatran etexilate [Pradaxa] 150 mg Capsule
150 mg PO BID
magnesium oxide 400 mg magnesium Tablet
400 mg PO BID
Ozempic 1 mg/dose (4 mg/3 mL) Pen Injector
1 mg SC QWEEK
Referrals:
Felix Wilcox MD [Family Provider, Family Practice]
Interventions
Interventions:
*Risk Screen - Suicide Last Done: 04/11/25 20:27
*General Assessment Last Done: 04/11/25 20:27
*Neglect/Abuse Screening Last Done: 04/11/25 20:27
*ED- Fall Risk Assessment Last Done: 04/11/25 20:27
*ED COVID-19 Vaccine History Last Done: 04/11/25 20:27
ED- Pulmonary Assessment Last Done: 04/11/25 20:45
Discharge Date and Time
Print Language: BENGALI
[2025-04-11] MEDS: TYLENOL 1000 MG PO (21:38)
[2025-04-11] MEDS: NSS 500 IV (21:39)
[2025-04-11 21:51] LABS: ALT (SGPT) 19 U/L (0-35); AST (SGOT) 30 U/L (14-36); Albumin 3.8 g/dl (3.5-5.0); Alkaline Phosphatase 121 U/L (38-126); Blood Urea Nitrogen 30 mg/dl (7-17); Calcium 8.9 mg/dl (8.4-10.2); Carbon Dioxide 30 mmol/L (22-30); Chloride 101 mmol/L (98-107); Estimated Creatinine Clearance 19 ml/min; Glucose 96 mg/dl (70-99); Potassium 4.2 mmol/L (3.5-5.1); Sodium 139 mmol/L (135-145); Total Bilirubin 0.6 mg/dl (0.2-1.3); Total Protein 6.6 g/dl (6.3-8.2); eGFR 22.95
[2025-04-11 21:56] LABS: Troponin I 0.028 ng/ml
[2025-04-11 22:00] VITALS: BP 133/64
[2025-04-11 23:00] VITALS: BP 130/66
[2025-04-12] VITALS (10 sets, daily range): BP systolic 97–144; BP diastolic 51–85; PULSE 89–94; BMI 35.4
[2025-04-12 00:05] LABS: Troponin I 0.039 ng/ml
[2025-04-12] MEDS: LOW STRENGTH ASPIRIN 324 MG PO (01:11)
--- NOTE | 2025-04-12 01:51 | HPS.HSE ---
Family Physician
-
Family Physician: Felix Wilcox MD
Chief Complaint
-
Headache, Chest Pain
History of Present Illness
Patient is an 84y F with PMH significant for hypertension, A-Fib and ASCVD who presents to ED complaining of headache, chills, fatigue and chest discomfort. Patient states she woke this AM with her current symptoms. Notes mild cough productive
of thick mucus. Chest tightness / heaviness. Headache, body aches, chills. Patient has been informed since her arrival here that an acquaintance with whom she recently visited was positive for COVID.
Patient feels generally poor. She has no chest pain at the time of my visit.
Patient complained yesterday of lower abdominal pressure and urinary frequency / urgency. She was prescribed Macrobid by her PCP which she started earlier today.
She states that these symptoms improved last PM (even prior to taking Macrobid).
Medical History
Past Medical History
Past Medical History: Reports Other
Additional Past Medical History:
Permanent Atrial Fibrillation
ASCVD
Hypertension
Chronic HFpEF
CKD III
Aortic Stenosis
Hypothyroidism
Nephrolithiasis
GERD
Osteopenia
Past Surgical History: Reports Other
Additional Past Surgical History:
TAVR
PTCA with Stent
Bilateral TKA
R TKA Revision
Umbilical Hernia Repair
Cysto / Stent
Social History
Tobacco: Non-smoker
Alcohol: None
Drug: None
Family History
Family History: Not pertinent
Allergies / Home Medications
Allergies reflects when Allergies were last updated in [facility].
Home Medications with original date entered in [facility]
Allergy/Medication List:
Allergies
Allergy/AdvReac Type Severity Reaction Status Date / Time
amoxicillin trihydrate (From Allergy c-diff Verified 04/11/25 21:35
Augmentin)
atorvastatin calcium (From Allergy pain legs, Verified 04/11/25 21:35
Lipitor) muscle
aches
levothyroxine Allergy Unknown Verified 04/11/25 21:35
Tqsgwbh-PDI-MqD Reductase Allergy pain legs, Verified 04/11/25 21:35
Inhibitor (Kklrfbo-Upa-Ssl muscle
Reductase Inhibitor) aches
Home Medications
omeprazole 20 mg capsule,delayed release 20 mg PO DAILY Gastrointestinal issue 11/16/09
cholecalciferol (vitamin D3) 50 mcg (2,000 unit) tablet 2,000 units PO DAILY Supplement 10/12/14
metoprolol succinate 50 mg tablet,extended release 24 hr 50 mg PO BID ##60 12/13/18
Balance Of Nature 2 cap PO TID Supplement 12/13/22
acetaminophen 500 mg tablet 500 mg PO Q6H PRN discomfort 06/25/23
allopurinol 100 mg tablet 100 mg PO DAILY Gout 06/25/23
bumetanide 1 mg tablet 1 mg PO BID 06/25/23
levothyroxine 125 mcg tablet (Synthroid) 125 mcg PO DAILY 06/25/23
vitamin B complex 1 tab PO DAILY 06/25/23
vitamin E 180 mg PO DAILY 06/25/23
dabigatran etexilate 150 mg capsule (Pradaxa) 150 mg PO BID 04/12/25
magnesium oxide 400 mg PO BID 04/12/25
semaglutide 1 mg/dose (4 mg/3 mL) subcutaneous pen injector (Ozempic) 1 mg SC QWEEK 04/12/25
spironolactone 25 mg tablet 25 mg PO Q48H 04/12/25
Review of Systems
-
History Source: Patient
A 12 point ROS was completed and negative except as noted: Yes
Constitutional: Reports Fatigue and Chills; Denies Fever
EENT: Denies Sore Throat
Respiratory: Reports Cough; Denies Trouble Breathing
Cardiac: Reports Chest Pain; Denies Diaphoresis, Palpitations or Syncope
Abdomen/GI: Denies Abdominal Pain, Nausea, Vomiting or Diarrhea
: Denies Dysuria, Frequency or Flank Pain
Musculoskeletal: Reports Joint Pain and Muscle Pain; Denies Edema
Neurological: Reports Headache; Denies Dizzy or Weakness
Psych: Denies Depression or Anxiety
Physical Exam
Vital Signs
Vital Signs
Temp Pulse Resp BP Pulse Ox
99.2 F 82 24 116/69 94
04/11/25 20:27 04/12/25 00:15 04/12/25 00:15 04/12/25 00:00 04/12/25 00:15
Physical Exam
General: Other (84y F in no acute distress.)
HEENT: Moist mucous membranes and PERRLA
Respiratory: Clear; No Wheezes, Rales or Rhonchi
Cardiac: S1/S2, Irregular Rhythm and Murmur (II/ KANDI)
GI: Soft, Non Tender, Non Distended and Normal Bowel Sounds
Musculoskeletal: No Clubbing, No Cyanosis and No Edema
Neuro: AO x 3
Laboratory Results
-
04/11/25 20:38
04/11/25 21:18
Laboratory Results
Total Bilirubin 0.6 mg/dl (0.2-1.3) 04/11/25 21:18
AST 30 U/L (14-36) 04/11/25 21:18
ALT 19 U/L (0-35) 04/11/25 21:18
Alkaline Phosphatase 121 U/L (38-126) 04/11/25 21:18
Troponin I 0.039 ng/ml H* D 04/11/25 23:30
Impression/Plan
-
A/P: Patient is an 84y F with PMH significant for ASCVD, A-Fib and CKD who presents to ED complaining of headache, chest pain and fatigue.
COVID-19 Infection
- Observe overnight for further evaluation and treatment.
- Afebrile, not significantly hypoxemic.
- Vaccinated x several doses - though missed her booster this past Fall.
- Monitor off of any COVID-specific therapies for now.
- Consider Remdesivir / dexamethasone if increased O2 requirements.
- Consider Paxlovid after acute coronary issue ruled out (see below).
- Follow proper precautions.
- Supportive care, Tylenol, etc.
Chest Pain
ASCVD
- Suspect this is myalgia secondary to COVID as noted above.
- EKG without evident acute ischemia.
- Troponin from 0.028 to 0.039 here in the ED.
- Pain free at present.
- Continue ASA daily. Monitor on telemetry.
- Follow for any recurrent chest pain.
- Follow troponin to peak.
- Consider Cardiology evaluation if recurrent chest pain or significant / continued rise in troponin.
- Continue usual CV med regimen.
UTI
- Urinary symptoms yesterday and started on Macrobid as an outpatient.
- Those symptoms have improved.
- UA today potentially c/w infection - though note that sample is contaminated.
- IV ceftriaxone for now to complete therapy (Macrobid contraindicated given her renal impairment).
- Follow for new symptoms / positive culture data / etc.
Chronic HFpEF
Aortic Stenosis s/p TAVR
- Stable. Patient does not appear grossly volume overloaded.
- Continue current diuretic regimen and follow I/Os, daily weights, etc.
- Last Echo here was 2022 with LVEF = 56% and severe . Has since had TAVR.
Permanent Atrial Fibrillation
- Stable. Continue current CV medications including Pradaxa for stroke risk reduction.
CKD III
- Stable. SCr at / near known baseline.
- Follow for any changes.
Hypothyroidism
- Continue current T4 replacement.
DVT Prophylaxis: On Pradaxa
Code Status: Full
--- NOTE | 2025-04-12 03:30 | PTCARENOTE ---
Received patient from ED. Patient AAOx3, assessed, VSS. Oriented to the unit. Patient verbalized to ring for all transfers. Call tenorio in reach.
[2025-04-12] MEDS: ROCEPHIN 1000 MG IV (04:06)
[2025-04-12] MEDS: TYLENOL 650 MG PO ×3 (04:06→21:05)
[2025-04-12] MEDS: STERILE WATER FOR INJECTION 10 ML IV (04:06)
[2025-04-12] MEDS: FLUSH (NSS) 2 FLUSH IV (04:07)
[2025-04-12 05:38] LABS: Hematocrit 35.4 % (37.0-47.0); Mean Corp Hgb Conc. 33.9 g/dL (33.0-37.0); Mean Corpuscular Hgb 32.9 pg (27.0-31.0); Platelet Count 119 10^3/uL (130-400); Red Blood Cell Count 3.65 10^6/uL (4.20-5.40); Red Cell Dist. Width 13.2 % (11.5-14.5); White Blood Cell Count 3.9 10^3/uL (4.8-10.8)
[2025-04-12 06:10] LABS: Blood Urea Nitrogen 31 mg/dl (7-17); Carbon Dioxide 28 mmol/L (22-30); Chloride 105 mmol/L (98-107); Estimated Creatinine Clearance 21 ml/min; Glucose 78 mg/dl (70-99); HDL Cholesterol 42 mg/dl; LDL Cholesterol, Calculated 84 mg/dl; Magnesium 2.3 mg/dl (1.6-2.3); Potassium 3.7 mmol/L (3.5-5.1); Sodium 140 mmol/L (135-145); Total Cholesterol 144 mg/dl (50-199); Triglyceride 92 mg/dl (10-149); Very Low Density Lipoprotein 18 mg/dl (0-30); eGFR 25.88
[2025-04-12 06:23] LABS: Troponin I 0.045 ng/ml
[2025-04-12 08:28] LABS: Glycohemoglobin (HgbA1c) 6.1 % (4.0-5.6)
--- NOTE | 2025-04-12 08:34 | W.PN.HOSP.TC ---
Addendum entered and electronically signed by Soy Davidson MD 04/12/25 10:50:
Updated daughter over the phone
Original Note:
Today's Communication/Plan
-
Cardiology eval. Supportive care.
Assessment / Plan
Assessment / Plan
Physical Exam
General: Other (84y F in no acute distress.)
HEENT: Moist mucous membranes and PERRLA
Respiratory: Clear; No Wheezes, Rales or Rhonchi
Cardiac: S1/S2, Irregular Rhythm and Murmur (II/ KANDI)
GI: Soft, Non Tender, Non Distended and Normal Bowel Sounds
Musculoskeletal: No Clubbing, No Cyanosis and No Edema
Neuro: AO x 3
A/P:
COVID-19 Infection
- Observe overnight for further evaluation and treatment.
- Afebrile, not significantly hypoxemic.
- Vaccinated x several doses - though missed her booster this past Fall.
- Monitor off of any COVID-specific therapies for now.
- Consider Remdesivir / dexamethasone if increased O2 requirements.
- Consider Paxlovid after acute coronary issue ruled out (see below).
- Follow proper precautions.
- Supportive care, Tylenol, etc.
Chest Pain
ASCVD
- Suspect this is myalgia secondary to COVID as noted above.
- EKG without evident acute ischemia.
- Troponin from 0.028 to 0.039 here in the ED.
- Pain free at present.
- Continue ASA daily. Monitor on telemetry.
- Follow for any recurrent chest pain.
- Follow troponin to peak.
- Will request cardiology consult given continued rise in troponin.
- Continue usual CV med regimen.
UTI
- Urinary symptoms yesterday and started on Macrobid as an outpatient.
- Those symptoms have improved.
- UA today potentially c/w infection - though note that sample is contaminated.
- IV ceftriaxone for now to complete therapy (Macrobid contraindicated given her renal impairment).
- Follow for new symptoms / positive culture data / etc.
Chronic HFpEF
Aortic Stenosis s/p TAVR
- Stable. Patient does not appear grossly volume overloaded.
- Continue current diuretic regimen and follow I/Os, daily weights, etc.
- Last Echo here was 2022 with LVEF = 56% and severe . Has since had TAVR.
Permanent Atrial Fibrillation
- Stable. Continue current CV medications including Pradaxa for stroke risk reduction.
CKD III
- Stable. SCr at / near known baseline.
- Follow for any changes.
Hypothyroidism
- Continue current T4 replacement.
DVT Prophylaxis: On Pradaxa
Code Status: Full
Anticipated Discharge: Within 24 hours
Subjective/Interval History
-
Date of Service: April 12, 2025
Patient denies further chest pain. She complains of sore throat. She also complains of generalized fatigue
Objective Data
-
Labs:
Laboratory Results
04/11/25 04/11/25 04/12/25
20:38 21:18 05:29
WBC 5.3 3.9 L
Hgb 12.4 12.0
Hct 36.1 L 35.4 L
Plt Count 119 L 119 L
Sodium Cancelled 139 140
Potassium Cancelled 4.2 3.7
Chloride Cancelled 101 105
Carbon Dioxide Cancelled 30 28
BUN Cancelled 30 H 31 H
Creatinine Cancelled 2.1 H 1.9 H
Glucose Cancelled 96 78
Calcium Cancelled 8.9 9.0
Total Bilirubin Cancelled 0.6
AST Cancelled 30
ALT Cancelled 19
Alkaline Phosphatase Cancelled 121
Vital Signs:
Vital Signs
Temp Pulse Resp BP Pulse Ox
97.9 F 89 18 127/65 96
04/12/25 07:35 04/12/25 07:35 04/12/25 07:35 04/12/25 07:35 04/12/25 07:35
[2025-04-12] MEDS: PRADAXA 150 MG PO ×2 (09:01→21:05)
[2025-04-12] MEDS: MAGNESIUM OXIDE 500 MG PO ×2 (09:02→21:05)
[2025-04-12] MEDS: ZYLOPRIM 100 MG PO (09:02)
[2025-04-12] MEDS: ALDACTONE 25 MG PO (09:02)
[2025-04-12] MEDS: TOPROL XL 50 MG PO ×2 (09:02→21:04)
[2025-04-12] MEDS: PROTONIX 40 MG PO (09:02)
[2025-04-12] MEDS: LOW STRENGTH ASPIRIN 81 MG PO (09:03)
[2025-04-12] MEDS: BUMEX 1 MG PO ×2 (09:03→21:05)
[2025-04-12 10:24] LABS: Troponin I 0.033 ng/ml
--- NOTE | 2025-04-12 11:51 | CON.CAR ---
Consultation
Consultation Request
Date/Time Consultation Requested: 04/12/25
Date/Time Consultation Performed: 04/12/25
Requesting Provider: Lety
Performing Provider: Magalie
Reason for Consultation: Chest pain
Medical History
-
Chief Complaint: chest pain
History of Present Illness:
Briefly, 84-year-old woman past medical history of severe aortic stenosis status post TAVR, heart failure preserved ejection fraction, permanent atrial fibrillation, CKD presenting with chest pressure and was found to be COVID positive. Cardiology
is consulted for evaluation of chest discomfort and elevated troponin.
Patient tells me that chest pressure started on the afternoon of 04/11/2025 and was constant. No clear exacerbating or alleviating features. Presented that evening to [place] emergency department for evaluation. Tells me that after she received
IV fluids and the emergency department her chest discomfort resolved. Initial troponin was within normal limits but then trended up: 0.028�0.039�0.045�0.033.
This morning she is resting comfortably in bed. No cardiac complaints including no further chest discomfort. Tells me her breathing is comfortable and no lower extremity edema.
PMHx:
Diastolic CHF
Severe aortic stenosis s/p TAVR
CAD with h/o NSTEMI in 01/2010
Permanent atrial fibrillation
Chronic OAC
BLANCA on CKD 3
Hypothyroidism
Hyperlipidemia
DM 2
History of cerebrovascular accident
Past Medical History
Past Medical History: Other (See above)
Past Surgical History: Other (See above)
Social History
Tobacco: Non-Smoker
Living: With Family
Family History
Family History: Reviewed & Not Pertinent
Allergies / Home Medications
Allergy/AdvReac Type Severity Reaction Status Date / Time
amoxicillin trihydrate (From Allergy c-diff Verified 04/11/25 21:35
Augmentin)
atorvastatin calcium (From Allergy pain legs, Verified 04/11/25 21:35
Lipitor) muscle
aches
levothyroxine Allergy Unknown Verified 04/11/25 21:35
Kmmxadg-GOD-AyG Reductase Allergy pain legs, Verified 04/11/25 21:35
Inhibitor ([id number]-Hgk-Bsp muscle
Reductase Inhibitor) aches
�Medication �Instructions �Recorded �Confirmed �Type
omeprazole 20 mg capsule,delayed 20 mg PO DAILY Gastrointestinal 11/16/09 04/12/25 History
release issue
cholecalciferol (vitamin D3) 50 2,000 units PO DAILY Supplement 10/12/14 04/12/25 History
mcg (2,000 unit) tablet
metoprolol succinate 50 mg 50 mg PO BID ##60 12/13/18 04/12/25 Rx
tablet,extended release 24 hr
Balance Of Nature 2 cap PO TID Supplement 12/13/22 04/12/25 History
acetaminophen 500 mg tablet 500 mg PO Q6H PRN discomfort 06/25/23 04/12/25 History
allopurinol 100 mg tablet 100 mg PO DAILY Gout 06/25/23 04/12/25 History
bumetanide 1 mg tablet 1 mg PO BID Gastrointestinal Issue 06/25/23 04/12/25 History
levothyroxine 125 mcg tablet 125 mcg PO DAILY@06 Thyroid 06/25/23 04/12/25 History
(Synthroid)
vitamin B complex 1 tab PO DAILY Supplement 06/25/23 04/12/25 History
vitamin E 180 mg PO DAILY Supplement 06/25/23 04/12/25 History
dabigatran etexilate 150 mg 150 mg PO BID Blood Clot 04/12/25 04/12/25 History
capsule (Pradaxa) Prevention/Tx
magnesium oxide 400 mg PO BID Supplement 04/12/25 04/12/25 History
semaglutide 1 mg/dose (4 mg/3 mL) 1 mg SC QWEEK Diabetes 04/12/25 04/12/25 History
subcutaneous pen injector (Ozempic)
spironolactone 25 mg tablet 25 mg PO Q48H Blood Pressure 04/12/25 04/12/25 History
Review of Systems
-
History Source: Patient
All other systems: Negative unless noted
Physical Exam
Vital Signs
Temp Pulse Resp BP Pulse Ox
97.9 F 89 18 121/65 96
04/12/25 07:35 04/12/25 09:02 04/12/25 07:35 04/12/25 09:02 04/12/25 07:35
Lab Results
04/12/25 05:29
04/12/25 05:29
Troponin I 0.033 ng/ml D 04/12/25 09:42
Physical Exam
General: Well Developed
HEENT: Normocephalic
Respiratory: Non Labored Respirations
Cardiac: S1/S2 and Irregular Rhythm
Breast: Deferred by me
GI: Soft
Musculoskeletal: No Edema
Skin: Warm and Dry
Neuro: Awake and Alert
Psych: Calm
Impression / Plan
-
Primary tool dresser: previously Dr. Nuñez, now following with Dr. Livan Boyle at [facility]
Nephrology: Dr. Chance Ocampo at [facility]
Impression:
Chest pain
Borderline elevated troponin
COVID+
Diastolic CHF
Severe aortic stenosis s/p TAVR
CAD with h/o NSTEMI in 01/2010
Permanent atrial fibrillation
Chronic OAC
BLANCA on CKD 3
Hypothyroidism
Hyperlipidemia
DM 2
History of cerebrovascular accident
ECHO 04/2013: EF 65-70%, mild MR, mild to mod aortic stenosis with mild AI, mild TR, mild pulm HTN, PAP 40mmHg
ECHO 03/10/15: EF 55-60%, mild to mod MR, MAC, mild to mod with LAUREN 1.3cm2, mild AR, severe TR, PAP 50-55mmHg
Echo 03/19/23: EF 56%, normal regional wall motion, normal RV size and function, severe aortic stenosis peak/mean 55/34mmHg respectively LAUREN 0.8 cm2
Recommend:
-Presenting with chest pain and found to be COVID-positive
-Resting comfortably this morning, no recurrence of her chest discomfort
-No ischemic changes seen on ECG
-Overall troponin trend is relatively flat and only borderline positive 0.028�0.039�0.045�0.033. No need to trend further.
-As she is currently asymptomatic would continue medical management with aspirin/Pradaxa, and metoprolol. Unfortunately she has a documented statin intolerance.
-Would try to obtain most recent cath report from [place] on Sunday
-If she remains asymptomatic suspect she could follow-up with her primary tool dresser and discuss outpatient ischemic evaluation
Data Reviewed
-
EKG: Tracing Personally Visualized and interpreted
Radiology: Image Personally Visualized and interpreted
Medical Tests (Nuc Med, Echo etc): Report Reviewed by me
Labs: Labs Reviewed by me
[2025-04-12] MEDS: DICLOFENAC 1% TOPICAL GEL 100 GRAM TOPICAL (21:05)
[2025-04-12] MEDS: MUCINEX 600 MG PO (21:53)
[2025-04-13] MEDS: TYLENOL 650 MG PO ×2 (01:10→08:21)
[2025-04-13 03:28] VITALS: BP 109/60
[2025-04-13] MEDS: ROCEPHIN 1000 MG IV (04:10)
[2025-04-13] MEDS: STERILE WATER FOR INJECTION 10 ML IV (04:11)
[2025-04-13 06:29] VITALS: BMI 34.9
[2025-04-13 06:37] LABS: Hematocrit 36.7 % (37.0-47.0); Hemoglobin 12.5 g/dL (12.0-16.0); Mean Corp Hgb Conc. 34.1 g/dL (33.0-37.0); Mean Corpuscular Hgb 32.7 pg (27.0-31.0); Mean Corpuscular Volume 96.1 fL (81.0-99.0); Mean Platelet Volume 11.6 fL (7.4-10.4); Platelet Count 120 10^3/uL (130-400); Red Blood Cell Count 3.82 10^6/uL (4.20-5.40); Red Cell Dist. Width 13.1 % (11.5-14.5); White Blood Cell Count 4.9 10^3/uL (4.8-10.8)
[2025-04-13 06:57] LABS: Blood Urea Nitrogen 37 mg/dl (7-17); Calcium 8.9 mg/dl (8.4-10.2); Carbon Dioxide 28 mmol/L (22-30); Chloride 106 mmol/L (98-107); Estimated Creatinine Clearance 21 ml/min; Glucose 77 mg/dl (70-99); Sodium 141 mmol/L (135-145); eGFR 25.88
[2025-04-13 07:45] VITALS: BP 121/63
[2025-04-13] MEDS: DICLOFENAC 1% TOPICAL GEL 100 GRAM TOPICAL (08:20)
[2025-04-13] MEDS: BUMEX 1 MG PO (08:21)
[2025-04-13] MEDS: MUCINEX 600 MG PO (08:21)
[2025-04-13] MEDS: PROTONIX 40 MG PO (08:21)
[2025-04-13] MEDS: ANESTHETIC LOZENGE 1 LOZENGE PO (08:21)
[2025-04-13] MEDS: LOW STRENGTH ASPIRIN 81 MG PO (08:21)
[2025-04-13] MEDS: MAGNESIUM OXIDE 500 MG PO (08:21)
[2025-04-13] MEDS: ZYLOPRIM 100 MG PO (08:21)
[2025-04-13] MEDS: TOPROL XL 50 MG PO (08:21)
[2025-04-13] MEDS: PRADAXA 150 MG PO (08:21)
--- NOTE | 2025-04-13 08:56 | W.PN.HOSP.TC ---
Today's Communication/Plan
-
Discharge planning today
Assessment / Plan
Assessment / Plan
Physical Exam
General: Other (84y F in no acute distress.)
HEENT: Moist mucous membranes and PERRLA
Respiratory: Clear; No Wheezes, Rales or Rhonchi
Cardiac: S1/S2, Irregular Rhythm and Murmur (II/ KANDI)
GI: Soft, Non Tender, Non Distended and Normal Bowel Sounds
Musculoskeletal: No Clubbing, No Cyanosis and No Edema
Neuro: AO x 3
A/P:
COVID-19 Infection
Supportive care and no need for specific treatment
Chest Pain
ASCVD
Flat troponin elevation
Cardiology evaluation appreciated and recommended follow-up with her outpatient felt coverer
UTI
Switch antibiotics to oral cephalexin renally dose for just a short course. Follow-up urine culture as outpatient
Chronic HFpEF
Aortic Stenosis s/p TAVR
- Stable. Patient does not appear grossly volume overloaded.
- Continue current diuretic regimen and follow I/Os, daily weights, etc.
- Last Echo here was 2022 with LVEF = 56% and severe . Has since had TAVR.
Permanent Atrial Fibrillation
- Stable. Continue current CV medications including Pradaxa for stroke risk reduction.
CKD stage IV
- Stable. SCr at / near known baseline.
- Follow for any changes.
Hypothyroidism
- Continue current T4 replacement.
DVT Prophylaxis: On Pradaxa
Code Status: Full
Anticipated Discharge: Today
Subjective/Interval History
-
Date of Service: April 13, 2025
No new complaints. Patient wants to go home today
Objective Data
-
Labs:
Laboratory Results
04/13/25
05:32
WBC 4.9
Hgb 12.5
Hct 36.7 L
Plt Count 120 L
Sodium 141
Potassium 4.0
Chloride 106
Carbon Dioxide 28
BUN 37 H
Creatinine 1.9 H
Glucose 77
Calcium 8.9
Vital Signs:
Vital Signs
Temp Pulse Resp BP Pulse Ox
98.0 F 82 18 121/63 97
04/13/25 07:45 04/13/25 07:45 04/13/25 07:45 04/13/25 07:45 04/13/25 07:45
I&O
04/12/25 04/13/25 04/14/25
06:59 06:59 06:59
Intake Total 1020 / 1020
Balance 1020 / 1020
--- NOTE | 2025-04-13 08:58 | W.DCSUMMARY ---
Discharge Summary
Discharge Data
Date of Admission: 04/13/25
Date of Discharge: 04/13/25
-
Pending Results: No
Hospital Course
Patient 84 years old female with history of severe aortic stenosis status post TAVR, CHF, permanent A-fib, CKD, came into the hospital chest discomfort and generalized malaise and found to have COVID-19 positive. Patient was not hypoxic so did not
require any treatment for COVID-19 but symptomatic care. She did have mildly elevated troponin and cardiology was consulted. Her cardiac enzymes trended down. Cardiology did not feel that she required any inpatient cardiac workup and recommended
to have her follow-up with her outpatient exercise rider to consider outpatient ischemic evaluation after recovering from COVID-19. Patient remains chest pain-free. She is also ambulating well and declined physical therapy evaluation. Patient also
was found to have a urinary tract infection as outpatient and she was started on Macrobid but this was discontinued due to her underlying CKD and started on IV ceftriaxone and repeated UA and urine culture. Her urine culture still pending but will
finish a short course of oral antibiotics for 2 more days to complete a 3 days course. She wants to go home today. She will be discharged in stable condition today.
Discharge Plan
-
Patient Disposition: Home (Routine Discharge)
Discharge Diagnosis/Procedures: Coronavirus-19. Chest pain. Elevated troponin. Urinary tract infection. Chronic kidney disease stage 4. History of diastolic congestive heart failure. Permanent atrial fibrillation.
Diet: Low Cholesterol, 2 Gram Sodium and Restrict fluids to 64 oz
Activity: As tolerated
Blood Work: Please PCP to order CBC, BMP within 1 week
Referrals:
Hardy Mejias MD [Active, Cardiology] - in two to three weeks
Felix Wilcox MD [Family Provider, Family Practice] - in less than 1 week
Additional Discharge Medication Instructions: Dabigatran has been changed from 150 mg twice a day to 75 mg oral twice a day due to kidney function. New prescription sent to your pharmacy.
Prescriptions:
New
cephalexin 250 mg capsule
250 mg PO BID Qty: 4 0RF
dabigatran etexilate 75 mg capsule
75 mg PO BID 30 Days Qty: 60 0RF
Continued
omeprazole 20 MG capsule,delayed release(DR/EC)
20 mg PO DAILY
cholecalciferol (vitamin D3) 2,000 UNIT tablet
2,000 units PO DAILY
metoprolol succinate 50 MG tablet extended release 24 hr
50 mg PO BID Qty: 60 0RF
Balance Of Nature
2 cap PO TID
Rx Instructions:
Fruits [employer] Vegetables
allopurinol 100 mg tablet
100 mg PO DAILY
acetaminophen 500 mg Tablet
500 mg PO Q6H PRN (Reason: discomfort)
levothyroxine [Synthroid] 125 mcg Tablet
125 mcg PO DAILY@06
bumetanide 1 mg Tablet
1 mg PO BID
vitamin B complex Tablet
1 tab PO DAILY
vitamin E
180 mg PO DAILY
spironolactone 25 mg Tablet
25 mg PO Q48H
magnesium oxide 400 mg magnesium Tablet
400 mg PO BID
Ozempic 1 mg/dose (4 mg/3 mL) Pen Injector
1 mg SC QWEEK
Discontinued
dabigatran etexilate [Pradaxa] 150 mg Capsule
150 mg PO BID
Discharge Orders:
Discharge Patient (As Directed); Ordered 04/13/25
Ordered By: Soy Davidson
Discharge Date and Time
Discharge Date/Time: 04/13/25 12:14
Print Language: CYPRIOT
--- NOTE | 2025-04-13 09:57 | W.PN.UPDATE ---
Update Note
Progress Note Update
Reviewed with nursing, she has had no cardiac or pulmonary complaints and is in anticipation of d/c.
Her troponins improved
Stable HR and bp
She can follow up as outpt with her outiside hydraulic rockbreaker operator for follow up and for consideration for outpt ischemic eval pending improvement from COVID
Please recall if needed.
[2025-04-13] MEDS: KEFLEX 250 MG PO (10:36)
--- NOTE | 2025-04-13 11:06 | CM ---
Reviewed the chart notes. Patient resides with spouse in a second floor condo with elevator access. Patient reports no DME/VN/SNF. Patient to be discharged to home today with no needs. Message left for patient's spouse updated discharge plans.
CM continues to be available to patient/family and is monitoring medical plan for needs at discharge.
Plan: Discharge to home today. No needs identified at this time.
[2025-04-13 11:46] VITALS: BP 128/78
== END 2025-04-13 12:14 | disposition home or self-care (01) | DRG 178 ==
LOC: 2 NORTH 08:36
PROVIDERS: ADMITTING PHYSICIAN Hospitalist; ATTENDING PHYSICIAN Hospitalist; CONSULT PHYSICIAN Internal Medicine Cardiovascular Disease; EMERGENCY PHYSICIAN Emergency Medicine; FAMILY PHYSICIAN Family Medicine
DX: U07.1 COVID-19 (principal); I13.0 Hypertensive heart and chronic kidney disease with heart failure and stage 1 through stage 4 chronic kidney disease, or unspecified chronic kidney disease; I50.32 Chronic diastolic (congestive) heart failure; N39.0 Urinary tract infection, site not specified; N18.4 Chronic kidney disease, stage 4 (severe); I48.21 Permanent atrial fibrillation; N17.9 Acute kidney failure, unspecified; E11.22 Type 2 diabetes mellitus with diabetic chronic kidney disease; Z95.2 Presence of prosthetic heart valve; E03.9 Hypothyroidism, unspecified; I25.10 Atherosclerotic heart disease of native coronary artery without angina pectoris; E78.00 Pure hypercholesterolemia, unspecified; I25.2 Old myocardial infarction; J45.909 Unspecified asthma, uncomplicated; K21.9 Gastro-esophageal reflux disease without esophagitis; M81.0 Age-related osteoporosis without current pathological fracture; Z86.73 Personal history of transient ischemic attack (TIA), and cerebral infarction without residual deficits; Z79.82 Long term (current) use of aspirin; Z79.85 Long-term (current) use of injectable non-insulin antidiabetic drugs; Z79.890 Hormone replacement therapy; Z79.899 Other long term (current) drug therapy; Z95.5 Presence of coronary angioplasty implant and graft; Z96.653 Presence of artificial knee joint, bilateral
CPT/HCPCS: 71045; 80048; 80053; 80061; 81003; 81015; 83036; 83735; 84484; 85025; 85027; 87086; 87502; 87811; 93005; 96360; 99285